=== PATIENT | female | born 1950 | race Caucasian/White ===

== ENCOUNTER 2016-09-22 18:48 | Inpatient (IN) | payer MEDICARE, OTHER ==
--- NOTE | ~2016-09-22 | DS ---
Discharge Summary [facility] [address] [place]. [address] NAME: VINCE MADERA : 48 STATUS : DIS IN PAT#: [id number] AGE: 66 ADM/REG DATE : 09/22/16 MR#: [id number] REPORT SERV DATE: 10/05/16 DICTATED BY: SRINIVAS QUEZADA DATE: 10/04/16 REPORT STATUS : Draft TRANSCRIBED BY: STACIA DATE: 10/04/16 Data Collection from hospitalization DISCHARGE DIAGNOSES: 1. Left hydronephrosis. 2. Multiple large calculi in the Paulding pouch. 3. Neurogenic bladder status post cystectomy with Paulding pouch. 4. Hypertension. 5. History of cervical/vulvar cancer. 6. History of atrial fibrillation. 7. History of cerebrovascular accident with left-sided deficit greater than 20 years ago. CONSULTATIONS: None. PROCEDURES PERFORMED: 1. CT of the abdomen and pelvis without contrast 09/22/2016. 2. Left percutaneous nephrostomy and antegrade ureteroscopy 09/22/2016. 3. Endoscopy of Paulding pouch and percutaneous lithotomy with in situ lithotripsy 09/22/2016. 4. Fluoroscopic-guided placement of a left percutaneous nephrostomy tube 09/24/2016. MEDICATIONS: Zovirax 800 mg daily, Wellbutrin XL 450 mg daily, Coreg 6.25 mg twice daily, Cymbalta 120 mg daily, TriCor 145 mg with supper, Synthroid 150 mcg daily, Prinivil 5 mg daily, Nexium 40 mg twice daily, Aldactone 25 mg daily, Topamax 600 mg at bedtime, Xarelto 20 mg with supper, Tylenol 650 mg as needed, Fosamax 70 mg every 7 days on Saturday, potassium chloride SR 10 mEq twice daily, hydrocodone 5/325 one every 4 hours as needed. CONDITION AT DISCHARGE: Upon discharge, she did appear to be doing well and had no complaints. DISPOSITION: She was discharged home to continue a regular diet with activity as tolerated. She was to follow up with Dr. Favio Santos as directed. HOSPITAL COURSE: This 66-year-old female had a history of neurogenic bladder. She underwent an Zahira pouch creation by Dr. Quezada some 20 years ago. She had diminished urinary output and difficulty catheterizing. She had also had some blood with catheterization. She had subjective fever. She called Dr. Favio Santos on the day of admission, and was instructed to go to the emergency room for lab test and CT pouchogram, she did this, and was admitted for further evaluation and treatment. Upon admission to the hospital, she had been placed on an n.p.o. diet after midnight. Her Xarelto was also placed on hold, she was begun on heparin at 5000 units subcutaneously every 8 hours. She did have a 14-Somali catheter placed. She was begun on Rocephin 1 g IV daily and was also begun on meropenem with pharmacy dosing. She had been placed on electrolyte protocol as well and was also begun on morphine at 3-4 mg IV as needed. She did undergo the above CT of the abdomen and pelvis without contrast on the day of admission. Following the day of admission, she did have complaints of pain still, she was noted to have had a fever up to 102 overnight, however, was afebrile when she was seen. She had a urinary output of 600 mL. She was continued on her current medications. On 09/24, she was afebrile, but did still have left flank pain. She did Discharge Summary [place] [id number] [facility] [place]. [address] NAME: VINCE MADERA : 48 STATUS : DIS IN PAT#: [id number] AGE: 66 ADM/REG DATE : 09/22/16 MR#: [id number] REPORT SERV DATE: 10/05/16 DICTATED BY: SRINIVAS QUEZADA DATE: 10/04/16 REPORT STATUS : Draft TRANSCRIBED BY: STACIA DATE: 10/04/16 undergo the above left percutaneous nephrostomy tube placement. On 09/25, she had been taken to the operating room where she did undergo the above left percutaneous nephrostomy and antegrade ureteroscopy. She did tolerate this well and was transferred to the recovery room. On postop day #1, she did appear to be doing well. She was afebrile and her vital signs were stable. She did still have some back pain, however, had no nausea or vomiting noted. She was felt to be stable postoperatively. On postop day #2, she had been taken back to the operating room where she did undergo the above endoscopy of the Paulding pouch and percutaneous lithotomy with in situ lithotripsy. She had tolerated this well and was transferred to the recovery room. On 09/28, her urine was clear, she was afebrile, and her vital signs had remained stable. She had been placed back on Xarelto, she did remain in stable condition, was then discharged with the above instructions. Information collected by: Ruma Muñoz. I submit the above information as my discharge summary. ARASELI/STACIA Srinivas Quezada M.D. / [id number] CC: FAVIO SANTOS
--- NOTE | ~2016-09-22 | OP ---
Record Of Operation [facility] [address] [place]. [address] NAME: VINCE MADERA : 48 STATUS : ADM IN PAT#: [id number] AGE: 66 ADM/REG DATE : 09/22/16 MR#: [id number] REPORT SERV DATE: 09/26/16 DICTATED BY: SRINIVAS QUEZADA DATE: 09/26/16 REPORT STATUS : Draft TRANSCRIBED BY: STACIA DATE: 09/26/16 DATE OF PROCEDURE: 09/22/2016 PREOPERATIVE DIAGNOSIS: Left hydronephrosis and suspected left ureteral calculus. OTHER DIAGNOSIS: Neurogenic bladder, status post cystectomy with Gladwin pouch. PROCEDURE: Left percutaneous nephrostomy and antegrade ureteroscopy. ANESTHESIA: General. ESTIMATED BLOOD LOSS: Minimal. DRAINS: A 5-Wolof open-ended catheter as left nephroureteral tube. INDICATION: A 66-year-old white female with an Gladwin pouch came to the emergency department with pain, fever, left hydronephrosis, and suspected distal left ureteral calculus. FINDINGS: No calculus is seen in the left ureter. TECHNIQUE: The patient was identified, brought to the operating room, administered general anesthetic agent by the Anesthesia Service, and intubated. She was positioned into the prone position. The left flank and nephrostomy tube were prepped and draped in usual sterile fashion. A 0.35 wire was inserted through the nephrostomy tube, and nephrostomy tube was removed. I then placed a Magda exchange catheter over the wire and removed the inner core and passed a second wire, which fortunately was able to go down the left ureter. I removed the Magda exchange catheter, and over the second wire, I am able to get two wires down the left ureter. Over one of the wires, I advanced a 12-Wolof ureteral access sheath. I advanced it just into the proximal ureter. I then removed the inner core and passed the flexible ureteroscope down the left ureter. I am able to advance it all the way into the Zahira pouch. No stones were seen in the ureter. The ureteroscope was removed. I removed the access sheath. I positioned a 5-Wolof open-ended catheter over the safety wire, and then removed the safety wire. The catheter was sutured to the skin and the procedure was terminated. ANDRÉS/STACIA Srinivas Quezada M.D. / [id number] CC: Record Of Operation [place] [address] [place]. [address] NAME: VINCE MADERA : 48 STATUS : ADM IN PAT#: [id number] AGE: 66 ADM/REG DATE : 09/22/16 MR#: [id number] REPORT SERV DATE: 09/26/16 DICTATED BY: SRINIVAS QUEZADA DATE: 09/26/16 REPORT STATUS : Draft TRANSCRIBED BY: STACIA DATE: 09/26/16 Maico Stewart RALPH EDWARD II
--- NOTE | ~2016-09-22 | OP ---
Record Of Operation [facility] [address] [place]. [address] NAME: VINCE MADERA : 48 STATUS : ADM IN PAT#: [id number] AGE: 66 ADM/REG DATE : 09/22/16 MR#: [id number] REPORT SERV DATE: 09/28/16 DICTATED BY: SRINIVAS QUEZADA DATE: 09/27/16 REPORT STATUS : Draft TRANSCRIBED BY: MODL DATE: 09/27/16 DATE OF PROCEDURE: 09/22/2016 PREOPERATIVE DIAGNOSIS: Multiple large stones in the Independence pouch. POSTOPERATIVE DIAGNOSIS: Multiple large stones in the Independence pouch. PROCEDURE: Endoscopy of Independence pouch and percutaneous lithotomy with in situ lithotripsy. SURGEON: Srinivas Quezada M.D. ANESTHESIA: General. ESTIMATED BLOOD LOSS: Minimal. DRAINS: A 22-Ecuadorean Malecot catheter in the Zahira pouch. INDICATION: A 66-year-old female who had an Independence pouch created in approximately 20 years ago. She presented recently with an obstructing ureteral stone and infection. She was noted to have multiple large stones measuring greater than 4 cm in her Zahira pouch. TECHNIQUE: The patient identified, brought to the operating room, administered general anesthetic agent by the Anesthesia Service, intubated. She was positioned in supine position. The entire lower abdomen was prepped and draped in usual sterile fashion. A flexible ureteroscope was inserted down her Mitrofanoff and the pouch was entered. I selected an area in the right lower quadrant of the abdomen and shined the light up. I inject some air through the ureteroscope and distend the anterior portion of the Zahira pouch. I infiltrated an area in the right lower quadrant of the abdomen with 1% Marcaine Plain. I placed a Chantale-type suprapubic catheter into the Zahira pouch under direct vision. I then removed the trocar and advanced a wire through the Chantale catheter. I removed the Chantale catheter leaving the wire behind. Over the wire, I placed a Magda exchange catheter. I removed the inner core and passed a second wire into the Independence pouch. I removed Magda and then over one of the wires, I advanced a NephroMax nephrostomy tract dilator. I dilated the fascia and then advanced the clear plastic sheath over the distended balloon into the Independence pouch. I removed the balloon. I then used the rigid nephroscope and began endoscopy of the conduit of the pouch. The patient has multiple stones in the bladder, and they are all in the dependent portion. I used the ultrasonic Lithotripter with the Cypriot LithoClast to fragment and extract the stones. It takes total of 3 hours to remove all the stones and all the stone fragments. Eventually, I am able to clear the entire Independence pouch of stones. I do not believe there was any perforation. I irrigated the pouch clear. I removed the nephroscope, and through the sheath, I placed a 22-Ecuadorean Malecot catheter. I removed the sheath, sutured the catheter to the skin. I performed a "pouchogram" by filling the pouch with dilute contrast material. It holds it without any extravasation. I drained it and connected to drainage. The procedure was terminated. Record Of Operation [place] [id number] [facility] [place]. [address] NAME: VINCE MADERA : 48 STATUS : ADM IN PAT#: [id number] AGE: 66 ADM/REG DATE : 09/22/16 MR#: [id number] REPORT SERV DATE: 09/28/16 DICTATED BY: SRINIVAS QUEZADA DATE: 09/27/16 REPORT STATUS : Draft TRANSCRIBED BY: STACIA DATE: 09/27/16 ANDRÉS/STACIA Srinivas Quezada M.D. / [id number] CC: Maico Stewart
--- NOTE | ~2016-09-22 | HP ---
History And Physical [place] [id number] [place]. [address] NAME: VINCE MADERA : 48 STATUS : ADM IN [facility]#: [id number] AGE: 66 ADM/REG DATE : 09/22/16 MR#: [id number] REPORT SERV DATE: 09/22/16 DICTATED BY: FAVIO SANTOS DATE: 09/22/16 REPORT STATUS : Draft TRANSCRIBED BY: MODRdaha DATE: 09/22/16 DATE OF ADMISSION: 09/22/2016 CHIEF COMPLAINT: Abdominal pain. HPI: Ms. Madera is a 66-year-old with history of neurogenic bladder. She underwent an Giles pouch creation by Dr. Srinivas Sandoval some 20 years ago. She has had diminished urinary output and difficulty catheterizing. She has also had some blood with catheterization. She has had subjective fever. She called me today. I instructed her to come to the emergency room for lab test and a CT pouchogram. PAST MEDICAL HISTORY: 1. Zahira pouch secondary to neurogenic bladder. 2. Cervical/vulvar cancer. 3. Hypertension. MEDICATIONS: List reviewed in chart. ALLERGIES: ELAVIL. SOCIAL HISTORY: Nonsmoker, . REVIEW OF SYSTEMS: Positive abdominal pain, worse on the right as well as diminished urine output and subjective fever. PHYSICAL EXAMINATION: VITAL SIGNS: 36.8. Vital signs are stable. GENERAL: Nontoxic appearing 66-year-old in no acute distress. She is thin. HEENT: Sclerae anicteric. LUNGS: Clear. HEART: Regular rhythm. CHEST: Clear anteriorly. ABDOMEN: Soft, mild diffuse tenderness. No rebound or guarding. No right or left CVA tenderness. Lower midline incision is well healed. Giles pouch catheterized and stoma was present at the umbilicus. PELVIC: Deferred. No edema. LABORATORY DATA: White blood cell count 11. Creatinine is 1.5 (baseline is 0.6). Catheterized urine was grossly infected. IMAGING: CT of the abdomen without contrast shows a stone within the catheterized pouch and bilateral hydronephrosis, left greater than right. There was question of a stone versus vascular calcification within the left ureter. With contrast administration into the pouch, there was no evidence of any extravasation. History And Physical [place] [id number] [place]. [address] NAME: VINCE MADERA : 48 STATUS : ADM IN PAT#: [id number] AGE: 66 ADM/REG DATE : 09/22/16 MR#: [id number] REPORT SERV DATE: 09/22/16 DICTATED BY: FAVIO SANTOS DATE: 09/22/16 REPORT STATUS : Draft TRANSCRIBED BY: STACIA DATE: 09/22/16 IMPRESSION: 1. Complicated urinary tract infection/pouchitis. 2. Stone within a catheterizable stoma. 3. Left hydronephrosis likely chronic, though a ureterolith is not entirely excluded. PLAN: 1. She is admitted and started on Rocephin. 2. I will hold her Xarelto. 3. SCDs and subcu heparin. 4. If pain fails to resolve with this antibiotics and hydration, and then a CT scan with IV contrast and delayed images will be necessary to exclude a ureteral stone on the left. FRITZ/STACIA Favio Santos M.D. / [id number] CC: Baldo Ryan
[2016-09-22 18:26] LABS: BASOPHILS 0.2 %; BASOPHILS ABSOLUTE 0.02 10/3/uL (0.0-0.16); EOSINOPHILS 0 %; HEMATOCRIT 33.9 % (36.0-48.0); HEMOGLOBIN 11.7 g/dL (12.0-16.0); IMMATURE GRANULOCYTES 0.3 %; LYMPHOCYTES 6.7 %; LYMPHOCYTES ABSOLUTE 0.75 10/3/uL (0.67-4.30); MEAN CORPUSCULAR HEMOGLOB 30.3 pg (26.0-34.0); MONOCYTES 12.5 %; NEUTROPHILS 80.3 %; PLATELET COUNT 254 10/3/uL (150-400); RED CELL COUNT 3.86 10/6/uL (4.0-5.6)
[2016-09-22 18:28] LABS: IMMATURE GRANULOCYTES ABSOLUTE 0.03 10/3/uL (0.0-0.11); MANUAL DIFF NO %; MEAN CORPUS HGB CONC 34.5 g/dL (32.0-36.0); MEAN CORPUSCULAR VOLUME 87.8 fL (80-100); WHITE BLOOD CELLS 11.2 10/3/uL (4.5-10.5)
[2016-09-22 18:44] LABS: ALBUMIN 3.5 G/DL (3.5-5.0); ALKALINE PHOSPHATASE 47 U/L (45-117); CALCIUM, SERUM 8.3 MG/DL (8.5-10.4); CHLORIDE, SERUM 107 MMOL/L (96-112); CO2 (CARBON DIOXIDE) 20 MMOL/L (24-34); GFR AFRICAN AMERICAN 43 ML/MIN (>=60); GFR NON AFRICAN AMERICAN 37 ML/MIN (>=60); GLOBULIN 3.4 G/DL (2.5-4.1); GLUCOSE, SERUM 102 MG/DL (60-99); POTASSIUM, SERUM 3.2 MMOL/L (3.5-5.3); SGOT(AST) 16 U/L (5-40); SGPT(ALT) 14 U/L (5-65); TOTAL BILIRUBIN 0.6 MG/DL (0-1.2); TOTAL PROTEIN 6.9 G/DL (6.0-8.5)
[2016-09-22 18:45] LABS: BUN (BLOOD UREA NITROGEN) 29 MG/DL (6-23); CREATININE 1.45 MG/DL (0.55-1.02); SODIUM, SERUM 139 MMOL/L (135-148)
[2016-09-22 18:48] LABS: ANISOCYTOSIS 1+ (5-10/OIF) (0-5/OIF); BAND NEUTROPHILS 11 %; ER DIFF TAT 0 Hrs 26 Mins; LYMPHOCYTES 8 %; MONOCYTES 4 %; MONOCYTES ABSOLUTE (CALC) 0.45 10/3/uL (0.21-1.20); NEUTROPHILS ABSOLUTE (CALC) 9.86 10/3/uL (2.02-8.40); SEGMENTED NEUTROPHIL (0) 77 %; TOTAL NUCLEATED CELLS 100
[~2016-09-22 18:48] MED LIST: ACTONEL150 MG PO; ACTONEL35 MG PO; AMITIZA8 MCG PO; ASA5GR PO; CALTRA600D PO; CELEBREX2 PO; CENTRUM TAB1 TAB PO; COUMADIN3 MG PO; CRILL OIL PO; CYMBALTA60 PO; DULOXETINE; FISH OIL1200 MG PO; JANTOVEN3 MG PO; K-TABS10 MEQ PO; KLOR-CON M2020 MEQ PO; LORT7 PO; METHOC500B PO; METHOC750B PO; NEXIUM40 PO; NORCO1 TA2 PO; REG PO; SPIRO25 PO; SYN1 PO; SYN112 PO; SYN125 PO; SYNTHROID; SYNTHROID137 MCG PO; TAMBOCOR PO; THERAPEUTIC PO; TOPAMAX200 MG PO; TRICOR145 PO; ULTRAM ER300 MG PO; VITC500 PO; VITE1000 PO; WELLXL150 PO; WELLXL300 PO; XARELTO20 MG PO; ZOVI800 PO
[2016-09-22 19:04] LABS: ASCORBIC ACID (UR NOT ORDER) NEG (NEG); BILIRUBIN, URINE NEGATIVE (NEG); ER URINALYSIS TAT 0 Hrs 18 Mins; KETONE, URINE NEGATIVE (NEG); LEUKOCYTE ESTERASE(NOT OR MOD (NEG); NITRITE (URINE) NEG (NEG); WBC (NOT ORDERED) (RFLEX) > 182 (0-5)
[2016-09-22] MEDS ORDERED: WELLXL150 PO (20:03)
[2016-09-22] MEDS ORDERED: XARELTO20 MG PO (20:03)
[2016-09-22] MEDS ORDERED: COREG6 PO (20:04)
[2016-09-22] MEDS ORDERED: PRIN5 PO (20:04)
[2016-09-22] MEDS ORDERED: TRICOR145 PO (20:04)
[2016-09-22] MEDS ORDERED: TOPAMAX200 MG PO (20:05)
[2016-09-22] MEDS ORDERED: SYN.15 PO (20:05)
[2016-09-22] MEDS ORDERED: NEXIUM40 PO (20:05)
[2016-09-22] MEDS ORDERED: CYMBALTA60 PO (20:06)
[2016-09-22] MEDS ORDERED: T PO (20:08)
[2016-09-22] MEDS ORDERED: FOSAMAX70 MG PO (20:09)
[2016-09-22] MEDS ORDERED: ZOVI800 PO (20:09)
[2016-09-22] MEDS ORDERED: SPIRO25 PO (20:10)
[2016-09-22] MEDS ORDERED: KDUR10 PO (20:10)
[2016-09-23 06:47] LABS: MEAN CORPUS HGB CONC 33.1 g/dL (32.0-36.0); MEAN CORPUSCULAR HEMOGLOB 29.4 pg (26.0-34.0); MEAN PLATELET VOLUME 9.2 fL (9.2-13.0); PLATELET COUNT 197 10/3/uL (150-400); RBC DISTRIBUTION WIDTH 18.4 % (12.0-16.0)
[2016-09-23 06:48] LABS: CHLORIDE, SERUM 112 MMOL/L (96-112); GLUCOSE, SERUM 86 MG/DL (60-99); SODIUM, SERUM 140 MMOL/L (135-148)
[2016-09-23 06:49] LABS: BUN (BLOOD UREA NITROGEN) 22 MG/DL (6-23); CO2 (CARBON DIOXIDE) 14 MMOL/L (24-34); POTASSIUM, SERUM 2.9 MMOL/L (3.5-5.3)
[2016-09-23 06:50] LABS: CALCIUM, SERUM 7.1 MG/DL (8.5-10.4); CREATININE 0.94 MG/DL (0.55-1.02); GFR AFRICAN AMERICAN 73 ML/MIN (>=60); GFR NON AFRICAN AMERICAN 63 ML/MIN (>=60)
[2016-09-23 07:02] LABS: RED CELL COUNT 2.99 10/6/uL (4.0-5.6)
[2016-09-23 07:03] LABS: HEMATOCRIT 26.6 % (36.0-48.0); HEMOGLOBIN 8.8 g/dL (12.0-16.0)
[2016-09-23 07:13] LABS: MANUAL DIFF YES %
[2016-09-23 08:19] LABS: BAND NEUTROPHILS 1 %; BASOPHILS 2 %; BASOPHILS ABSOLUTE (CALC) 0.16 10/3/uL (0.0-0.16); LYMPHOCYTES 15 %; MONOCYTES 14 %; MONOCYTES ABSOLUTE (CALC) 1.12 10/3/uL (0.21-1.20); NEUTROPHILS ABSOLUTE (CALC) 5.52 10/3/uL (2.02-8.40); PLATELET ESTIMATE ADQ (ADEQUATE); SEGMENTED NEUTROPHIL (0) 68 %; TOTAL NUCLEATED CELLS 100
[2016-09-23 08:20] LABS: ANISOCYTOSIS 1+ (5-10/OIF) (0-5/OIF); MACROCYTES 1+ (5-10/OIF) (0-5/OIF); TOXIC GRANULATION 1+
[2016-09-23 16:59] LABS: HEMATOCRIT 27.1 % (36.0-48.0); HEMOGLOBIN 8.9 g/dL (12.0-16.0)
[2016-09-23 19:46] LABS: BUN (BLOOD UREA NITROGEN) 23 MG/DL (6-23); CALCIUM, SERUM 7.3 MG/DL (8.5-10.4); CHLORIDE, SERUM 114 MMOL/L (96-112); CO2 (CARBON DIOXIDE) 16 MMOL/L (24-34); CREATININE 0.91 MG/DL (0.55-1.02); GFR AFRICAN AMERICAN 76 ML/MIN (>=60); GFR NON AFRICAN AMERICAN 65 ML/MIN (>=60); GLUCOSE, SERUM 82 MG/DL (60-99); SODIUM, SERUM 141 MMOL/L (135-148)
[2016-09-24 05:57] LABS: HEMATOCRIT 25.3 % (36.0-48.0); HEMOGLOBIN 8.5 g/dL (12.0-16.0); MEAN CORPUS HGB CONC 33.6 g/dL (32.0-36.0); MEAN CORPUSCULAR HEMOGLOB 29.8 pg (26.0-34.0); MEAN CORPUSCULAR VOLUME 88.8 fL (80-100); MEAN PLATELET VOLUME 9.5 fL (9.2-13.0); PLATELET COUNT 195 10/3/uL (150-400); RBC DISTRIBUTION WIDTH 18.8 % (12.0-16.0); RED CELL COUNT 2.85 10/6/uL (4.0-5.6); WHITE BLOOD CELLS 4.8 10/3/uL (4.5-10.5)
[2016-09-24 06:03] LABS: INTERNATIONAL NORMAL RATI 1.3 UNITS (-)
[2016-09-24 06:04] LABS: PARTIAL THROMBO TIME 58.1 SEC (22.5-37.2)
[2016-09-24 06:05] LABS: MANUAL DIFF YES %
[2016-09-24 06:08] LABS: CALCIUM, SERUM 7.2 MG/DL (8.5-10.4); CHLORIDE, SERUM 115 MMOL/L (96-112); CO2 (CARBON DIOXIDE) 16 MMOL/L (24-34); CREATININE 0.78 MG/DL (0.55-1.02); GFR AFRICAN AMERICAN 91 ML/MIN (>=60); GFR NON AFRICAN AMERICAN 79 ML/MIN (>=60); GLUCOSE, SERUM 93 MG/DL (60-99); POTASSIUM, SERUM 3.4 MMOL/L (3.5-5.3); PROTIME (NOT ORD) 16.5 SEC (12.0-14.5); SODIUM, SERUM 142 MMOL/L (135-148)
[2016-09-24 06:13] LABS: BUN (BLOOD UREA NITROGEN) 17 MG/DL (6-23)
[2016-09-24 06:58] LABS: BAND NEUTROPHILS 5 %; LYMPHOCYTES 24 %; LYMPHOCYTES ABSOLUTE (CALC) 1.15 10/3/uL (0.67-4.30); MONOCYTES 5 %; MONOCYTES ABSOLUTE (CALC) 0.24 10/3/uL (0.21-1.20); NEUTROPHILS ABSOLUTE (CALC) 3.41 10/3/uL (2.02-8.40); SEGMENTED NEUTROPHIL (0) 66 %; TOTAL NUCLEATED CELLS 100
[2016-09-24 06:59] LABS: ANISOCYTOSIS 1+ (5-10/OIF) (0-5/OIF); OVALOCYTES 1+ (3-10/OIF) (0-2/OIF); PLATELET ESTIMATE ADQ (ADEQUATE); POIKILOCYTOSIS 1+ (5-10/OIF) (0-5/OIF); POLYCHROMASIA 1+ (2-5/OIF) (0-1/OIF); TOXIC GRANULATION 1+
[2016-09-27 06:53] LABS: BASOPHILS 0.4 %; BASOPHILS ABSOLUTE 0.02 10/3/uL (0.0-0.16); EOSINOPHILS 0.2 %; EOSINOPHILS ABSOLUTE 0.01 10/3/uL (0.0-0.53); HEMATOCRIT 26.3 % (36.0-48.0); HEMOGLOBIN 8.9 g/dL (12.0-16.0); IMMATURE GRANULOCYTES 0.6 %; IMMATURE GRANULOCYTES ABSOLUTE 0.03 10/3/uL (0.0-0.11); LYMPHOCYTES 44.4 %; LYMPHOCYTES ABSOLUTE 2.08 10/3/uL (0.67-4.30); MANUAL DIFF NO %; MEAN CORPUS HGB CONC 33.8 g/dL (32.0-36.0); MEAN CORPUSCULAR HEMOGLOB 29.4 pg (26.0-34.0); MEAN CORPUSCULAR VOLUME 86.8 fL (80-100); MEAN PLATELET VOLUME 8.9 fL (9.2-13.0); MONOCYTES 11.5 %; MONOCYTES ABSOLUTE 0.54 10/3/uL (0.21-1.20); NEUTROPHILS 42.9 %; PLATELET COUNT 293 10/3/uL (150-400); RBC DISTRIBUTION WIDTH 18.3 % (12.0-16.0); RED CELL COUNT 3.03 10/6/uL (4.0-5.6); WHITE BLOOD CELLS 4.7 10/3/uL (4.5-10.5)
[2016-09-27 07:07] LABS: BUN (BLOOD UREA NITROGEN) 11 MG/DL (6-23); CALCIUM, SERUM 9.4 MG/DL (8.5-10.4); CHLORIDE, SERUM 115 MMOL/L (96-112); CO2 (CARBON DIOXIDE) 18 MMOL/L (24-34); CREATININE 0.66 MG/DL (0.55-1.02); GFR AFRICAN AMERICAN 106 ML/MIN (>=60); GFR NON AFRICAN AMERICAN 91 ML/MIN (>=60); GLUCOSE, SERUM 90 MG/DL (60-99); POTASSIUM, SERUM 3.2 MMOL/L (3.5-5.3); SODIUM, SERUM 146 MMOL/L (135-148)
[2016-09-28 06:51] LABS: HEMATOCRIT 25.1 % (36.0-48.0); HEMOGLOBIN 8.2 g/dL (12.0-16.0); MEAN CORPUS HGB CONC 32.7 g/dL (32.0-36.0); MEAN CORPUSCULAR HEMOGLOB 29.2 pg (26.0-34.0); MEAN CORPUSCULAR VOLUME 89.3 fL (80-100); MEAN PLATELET VOLUME 8.7 fL (9.2-13.0); PLATELET COUNT 293 10/3/uL (150-400); RBC DISTRIBUTION WIDTH 18.7 % (12.0-16.0); RED CELL COUNT 2.81 10/6/uL (4.0-5.6)
[2016-09-28 06:53] LABS: MANUAL DIFF YES %; WHITE BLOOD CELLS 9.5 10/3/uL (4.5-10.5)
[2016-09-28 07:02] LABS: BUN (BLOOD UREA NITROGEN) 11 MG/DL (6-23); CHLORIDE, SERUM 109 MMOL/L (96-112); CO2 (CARBON DIOXIDE) 17 MMOL/L (24-34); CREATININE 0.69 MG/DL (0.55-1.02); GFR AFRICAN AMERICAN 104 ML/MIN (>=60); GFR NON AFRICAN AMERICAN 90 ML/MIN (>=60); GLUCOSE, SERUM 75 MG/DL (60-99); POTASSIUM, SERUM 3.3 MMOL/L (3.5-5.3); SODIUM, SERUM 140 MMOL/L (135-148)
[2016-09-28 07:06] LABS: CALCIUM, SERUM 7.8 MG/DL (8.5-10.4)
[2016-09-28 07:33] LABS: LYMPHOCYTES 26 %; LYMPHOCYTES ABSOLUTE (CALC) 2.47 10/3/uL (0.67-4.30); MONOCYTES 9 %; MONOCYTES ABSOLUTE (CALC) 0.86 10/3/uL (0.21-1.20); NEUTROPHILS ABSOLUTE (CALC) 6.18 10/3/uL (2.02-8.40); SEGMENTED NEUTROPHIL (0) 65 %; TOTAL NUCLEATED CELLS 100
[2016-09-28 07:34] LABS: ANISOCYTOSIS 1+ (5-10/OIF) (0-5/OIF); PLATELET ESTIMATE ADQ (ADEQUATE)
[2016-09-28] MEDS ORDERED: NORCO1 TA1 PO (14:43)
[2016-10-03 13:13] LABS: STONE COMPOSITION TWO DNR (())
== END 2016-09-28 16:00 | disposition home or self-care (01) | DRG 699 ==
LOC: ER 18:48 → 4SO 20:00
PROVIDERS: Emergency Medicine; Urology
DX: T83.598A Infection and inflammatory reaction due to other prosthetic device, implant and graft in urinary system, initial encounter (principal); N13.6 Pyonephrosis; I69.354 Hemiplegia and hemiparesis following cerebral infarction affecting left non-dominant side; I48.2 Chronic atrial fibrillation; Z85.41 Personal history of malignant neoplasm of cervix uteri; Y83.3 Surgical operation with formation of external stoma as the cause of abnormal reaction of the patient, or of later complication, without mention of misadventure at the time of the procedure; I10 Essential (primary) hypertension; Z88.8 Allergy status to other drugs, medicaments and biological substances; Z79.01 Long term (current) use of anticoagulants; Z98.1 Arthrodesis status; Z90.6 Acquired absence of other parts of urinary tract; G47.33 Obstructive sleep apnea (adult) (pediatric); M79.7 Fibromyalgia; E03.9 Hypothyroidism, unspecified; Z88.1 Allergy status to other antibiotic agents
CPT/HCPCS: 50431; 50432; 74176; 76000; 80048; 80053; 81001; 82365; 83605; 83690; 83735; 84132; 85014; 85018; 85025; 85610; 85730; 87040; 87086; 96374; 99285; A9270-GY; C1726; C1729; C1758; C1769; C1892; C1894; C2617; C2627; J0690; J1170; J2250; J2270; J2405; J2710; J3010; Q9967